=== PATIENT | female | born 1930 | race Caucasian/White ===

== ENCOUNTER 2019-08-22 11:59 | Emergency (ER) | payer MEDICARE, BC, MEDICAID ==
--- NOTE | 2019-08-22 12:34 | CT ---
EXAMINATION: Cervical Spine w Cont SEX: Female AGE: 89 years CLINICAL HISTORY: 89-year-old female emergency Department after fall with loss of consciousness. Scan technique: Volume acquisition of data emergency unenhanced CT scan cervical spine obtained with patient lying supine on the Siemens multislice scanner [place], [place]. All data archived in the PACS system for storage, reformatting axial/sagittal/coronal planes and study (bone/soft tissue windows). INTERPRETATION: 1. Generalized osteopenia consistent with age and gender. 2. 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 loss of intervertebral discs placed dense reactive sclerosis adjacent endplates and hypertrophic marginal/uncinate spur formation C5-6 C6-7 levels. 3. Subtle anterolisthesis C4 and C7 vertebral bodies with associated reactive sclerosis posterior articulating facets. 4. No sign of prevertebral soft tissue swelling, acute cervical fracture or jumped locked facet. 5. No fractures of the upper 3 thoracic vertebra. No basal skull fracture. 6. Symmetric clear pneumatization of the mastoid sinuses. 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 No acute fracture or dislocation cervical spine.
--- NOTE | 2019-08-22 12:41 | CT ---
EXAMINATION: Head wo Cont SEX: Female AGE: 89 years CLINICAL HISTORY: 89-year-old female injured in fall with loss of consciousness (LOC). ASA. Scan technique: Volume acquisition of data emergency unenhanced CT scan of the head and brain obtained with the patient lying supine on the Siemens multislice scanner [place], [place]. All data archived in the PACS system for storage, reformatting axial/sagittal/coronal planes and study. No comparison head CTs immediately available. INTERPRETATION: 1. Uniformly thick bony calvarium without sign of skull fracture, underlying brain contusion or abnormal extracerebral/intracranial epidural or subdural hematoma. 2. Severe but generally symmetric cerebral cortical atrophy with underlying mirror-image normal ventricular system. 3. Scattered multi-infarct ischemic changes identified throughout the periventricular white matter both hemispheres and peripherally in the left parietal convexity (no associated edema or mass effect on underlying sulci). 4. No sign of acute intracerebral/intraventricular/subarachnoid bleed. 5. Cerebellar atrophy and low-attenuation in the brainstem suggesting ischemia but no bleed. 6. Fractures maxillary sinus on the right with underlying hemorrhage and air. No foreign bodies. 7. Nasal septum is straight in the midline and the other paranasal sinuses are clear. Normal mastoid sinuses. CONCLUSION: Comminuted right maxillary facial fracture. Edentulous patient. No sign of skull fracture or closed head injury. 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
[2019-08-22 12:44] LABS: ANION GAP 11.9; CHLORIDE,CL 105 mmol/L (101-111); SODIUM,NA 140 mmol/L (135-145)
--- NOTE | 2019-08-22 12:47 | CT ---
EXAMINATION: Max Facial Sinus wo Cont SEX: Female AGE: 89 years CLINICAL HISTORY: 89-year-old female injured fall with loss of consciousness and facial trauma. Scan technique: Volume acquisition of data emergency unenhanced CT scan of the facial bones obtained with the patient lying supine on the Siemens multi slice scanner [place], [place]. All data archived in the PACS system for storage, reformatting axial/sagittal/coronal planes and study (bone/soft tissue windows). Interpretation: Abnormal. 1. Edentulous patient but TMJs intact. 2. *Blowout FRACTURE inferior orbit on the right with associated comminuted fractures involving the ipsilateral maxillary sinus (fluid and air filling the right maxillary antrum). No obvious entrapment. *Nondisplaced fracture zygomatic arch, on the right. 3. No foreign bodies. 4. Nasal septum is straight in the midline. No fractures of the nasal or anterior maxillary spine. 5. Ethmoid, left maxillary, sphenoid and mastoid sinuses satisfactorily pneumatized and clear. 6. No basal skull fracture. Osteopenia but no fractures or dislocation of the first 4 cervical vertebra. INTERPRETATION: 1. CONCLUSION:
--- NOTE | 2019-08-22 12:58 | EDM.PDOC ---
ED HPI GENERAL MEDICAL PROBLEM - General Stated Complaint: FELL AND HIT HEAD Time Seen by Provider: 08/22/19 12:35 Source of Information: Reports: Patient History Limitations: Reports: No Limitations - History of Present Illness INITIAL COMMENTS - FREE TEXT/NARRATIVE: HPI: This 89 yo female patient reports to the ED due to a ground level fall. The patient was brought to the ED by Staff from [facility]. Upon arrival , the patient was repeating herself. The patient was found in the dining room seated on the floor. The patient does not recall the events leading up to the fall. The patient reports pain in her right side of her face and right eye. The patient has a laceration to her right upper lateral eye with dried blood to the area. Primary Survey Airway: open and patient Breathing: regular without additional effort Circulation: no major bleeding noted Deformity: no deformity noted Expose: as appropriate GCS: 15 Secondary Survey HEENT Head: The patient has pain and bruising to the right eye. The patient has a laceration to her right lateral upper eye. Eyes: PERRLA, no entrapment Ears: no obvious trauma, canals open Nose: no deformity, no bleeding, mucosa moist Mouth: no noted trauma Throat: no abnormalities noted Neck: Subtle, normal range of motion no cervical tenderness Chest: lung sounds were clear and equal bilaterally, Heart: RRR, no murmurs, rubs or gallop Abdomen: normoactive bowel sounds, no organomegally, no tenderness on palpation Pelvis: stable Extremities: CMS intact Provider Trauma Notes Arrival Time: 1205 GCS on Arrival: 15 C-collar present on arrival: No, placed by nursing staff GCS at 1 hour: Off spine board: NA Time primary survey: 1235 Time secondary survey: 1240 Time C-collar cleared: 1240 By: Roman Time removed: 1240 GCS on discharge: Onset: Today Onset Date: 08/22/19 Onset Time: 11:30 Duration: Constant Location: Reports: Face Quality: Reports: Ache, Sharp Severity: Moderate Improves with: Reports: None Worsens with: Reports: None Context: Reports: Trauma Associated Symptoms: Reports: No Other Symptoms - Related Data Allergies Allergy/AdvReac Type Severity Reaction Status Date / Time Sulfa (Sulfonamide Allergy Other Verified 10/23/16 14:58 Antibiotics) Review of Systems - Review of Systems Review Of Systems: Comprehensive ROS is negative, except as noted in HPI. ED EXAM, GENERAL - Physical Exam Exam: See Below Exam Limited By: No Limitations General Appearance: Alert, WD/WN, Mild Distress, Thin Eye Exam: Right Eye: Other (Bruising and swelling of right orbit), Bilateral Eye : EOMI, PERRL Ears: Normal External Exam, Hearing Grossly Normal, Normal TMs, Other (small amount of dried blood in righ canal) Nose: Normal Inspection, Normal Mucosa, Other (small amount of blood right nare) Head: Facial Swelling (right orbit), Facial Tenderness (right ), Sinus Tenderness (right) Neck: Normal Inspection, Supple, Non-Tender, Full Range of Motion Respiratory/Chest: No Respiratory Distress, Lungs Clear, Normal Breath Sounds, No Accessory Muscle Use, Chest Non-Tender Cardiovascular: Normal Peripheral Pulses, Regular Rate, Rhythm, No Edema, No Gallop, No JVD, No Murmur, No Rub GI/Abdominal: Normal Bowel Sounds, Soft, Non-Tender, No Organomegaly, No Distention, No Abnormal Bruit, No Mass (Female) Exam: Deferred Rectal (Female) Exam: Deferred Back Exam: Normal Inspection, Full Range of Motion, NT Extremities: Normal Inspection, Normal Range of Motion, Non-Tender, Normal Capillary Refill, No Pedal Edema Neurological: Alert, Oriented, CN II-XII Intact, Normal Cognition, Normal Gait, Normal Reflexes, No Motor/Sensory Deficits Psychiatric: Normal Affect, Normal Mood Skin Exam: Warm, Dry, Normal Color, No Rash, Wound/Incision (small lac) Lymphatic: No Adenopathy Course - Orders/Labs/Meds Orders: Active Orders 24 hr Category Date Time Status EKG Documentation Completion [RC] URGENT Care 08/22/19 12:16 Ordered Labs: Laboratory Tests 08/22/19 08/22/19 08/22/19 Range/Units 12:15 12:15 12:15 WBC 8.1 (5.0-10.0) 10^3/uL RBC 4.28 (4.2-5.4) 10^6/uL Hgb 12.5 (12.0-16.0) g/dL Hct 39.4 (37.0-47.0) % MCV 92.1 (80-100) fL MCH 29.2 (27.0-34.0) pg MCHC 31.7 L (33.0-35.0) g/dL Plt Count 228 (150-450) 10^3/uL Neut % (Auto) 51.1 (42.2-75.2) % Lymph % (Auto) 36.7 (20.5-50.1) % Summers % (Auto) 10.4 H (2-8) % Eos % (Auto) 1.6 (1.0-3.0) % Baso % (Auto) 0.2 (0.0-1.0) % PT 9.3 (9.0-12.0) SEC INR 0.9 (0.9-1.2) Sodium 140 (135-145) mmol/L Potassium 3.9 (3.6-5.0) mmol/L Chloride 105 (101-111) mmol/L Carbon Dioxide 27.0 (21.0-31.0) mmol/L Anion Gap 11.9 BUN 11 (7-18) mg/dL Creatinine 0.8 (0.6-1.3) mg/dL Est Cr Clr Drug Dosing TNP Estimated GFR (MDRD) > 60 BUN/Creatinine Ratio 13.75 Glucose 100 (74-105) mg/dL Calcium 10.8 H (8.4-10.2) mg/dl Total Bilirubin 0.9 (0.2-1.0) mg/dL AST 20 (10-42) IU/L ALT 10 (10-60) IU/L Alkaline Phosphatase 66 (42-121) IU/L Troponin I < 0.02 (0.00-0.02) ng/ml Total Protein 7.0 (6.7-8.2) g/dl Albumin 4.2 (3.2-5.5) g/dl Globulin 2.8 Albumin/Globulin Ratio 1.50 - Re-Assessments/Exams Free Text/Narrative Re-Assessment/Exam: 08/22/19 14:08 At 1303, a call was placed to [facility] regarding a transfer due to injuries. Dr. Rinaldi (Emergency Department) and Dr. Bhakta (Surgery) both advised that the patient will need to see MaxioFacial Surgery which is not available at [facility]. At 1319, a call was placed to [facility] in [place] regarding the patient's history and injuries. At 1359, the patient was accepted by Dr. Campo with a consult from Dr. Sigala (MaxioFacial Surgery). Departure - Departure Time of Disposition: 14:12 Disposition: DC/Tfer to Acute Hospital 02 Condition: Serious Clinical Impression: Right orbital fracture Qualifiers: Encounter type: initial encounter Fracture type: closed Qualified Code(s): S02.85XA - Fracture of orbit, unspecified, initial encounter for closed fracture - Discharge Information *PRESCRIPTION DRUG MONITORING PROGRAM REVIEWED*: Not Applicable *COPY OF PRESCRIPTION DRUG MONITORING REPORT IN PATIENT ALYSSA: Not Applicable Forms: Interfacility Transfer EMTALA Care Plan Goals: Discussed the patient's history, examination, lab, EKG and CT results with Dr. Campo (Emergency department) and Dr. Sigala (Maxiofacial Surgery) in [facility]. Dr. Campo accepted the patient for continued evaluation and further treatment. The patient will be transported by [facility]. - My Orders Last 24 Hours: My Active Orders 08/22/19 12:16 EKG Documentation Completion [RC] URGENT - Assessment/Plan Last 24 Hours: My Active Orders 08/22/19 12:16 EKG Documentation Completion [RC] URGENT
[2019-08-22] MEDS ORDERED: Diphtheria,Pertussis(Acell),Tetanus Vaccine 0.5 ML SDV IM ONE (13:13)
[2019-08-22] MEDS ORDERED: Amoxicillin/Clavulanate K 875-125 MG Tab PO ONE (14:04)
== END 2019-08-22 15:02 ==
LOC: DL.ED 11:59
DX: S02.31XA Fracture of orbital floor, right side, initial encounter for closed fracture (principal); S02.40CA Maxillary fracture, right side, initial encounter for closed fracture; S01.111A Laceration without foreign body of right eyelid and periocular area, initial encounter; Z88.2 Allergy status to sulfonamides; W18.30XA Fall on same level, unspecified, initial encounter
CPT/HCPCS: 36415; 70450; 70486; 72126; 80053; 84484; 85025; 85610; 90715; 93005; 99284; A9270; G0008